=== PATIENT | female | born 1965 | race Caucasian/White ===

== ENCOUNTER 2017-12-16 14:12 | Inpatient (IN) | payer OTHER ==
[~2017-12-16] VITALS: Ht 162.6 cm; Wt 67.1 kg
[2017-12-16 14:25] VITALS: BP 142/74
--- NOTE | 2017-12-16 14:25 | NUR ---
[id number]: PT IS 52 YEARS OLD FEMALE ADMITTED ON 5150 FOR DTS. PT IS ALERT AND ORIENTED X3. ACCORDING TO THE HOLD, PT ATTEMPTED TO COMMIT SUICIDE BY TAKING PILLS. OFFICERS ARRIVED TO PT'S RESIDENCE, SUBJECTS WAS ON TOP OF PT WHO WAS DRUNK AND ATTEMPTED TO COMMIT SUICIDE BY TAKING PILLS. PT IS A CLARIBEL TO SELF. PT IS AMBULATORY, SELF-CARE, CONTINENT. MRSA DONE. CODE STATUS ORDERED. SKIN ASSESSMENT DONE. PT'S RIGHT BOOKLET WAS GIVEN TO PT. DISCUSS MEAL TIMES AND ACTIVITIES SCHEDULES. PT HAS ANXITY, DEPRESSION, DIABETES, HEADACHES, AND BACK PAIN. ALL PAPERWORK AND COMPUTER DOCUMENTATION COMPLETED. WILL ENDORSE TO INCOMING NURSE TO DOUBLE CHECK ALL COMPUTER AND PAPERWORK DOCUMENTATION.
[2017-12-16] MEDS ORDERED: MULT-447 PO (14:38)
[2017-12-16] MEDS ORDERED: TEST2.5G6 TD (14:38)
[2017-12-16] MEDS ORDERED: LORA10TA7 PO (14:38)
[2017-12-16] MEDS ORDERED: ASEN10TA9 SL (14:38)
[2017-12-16] MEDS ORDERED: OXYB10TA PO (14:38)
[2017-12-16] MEDS ORDERED: ASPI-1152 PO (14:38)
[2017-12-16] MEDS ORDERED: AROM1FL. PO (14:38)
[2017-12-16] MEDS ORDERED: MORP30TA PO (14:38)
[2017-12-16] MEDS ORDERED: ESTR2TAB PO (14:38)
[2017-12-16] MEDS ORDERED: LISI30TA4 PO (14:38)
[2017-12-16] MEDS ORDERED: DIAZ5TAB4 PO (14:38)
[2017-12-16] MEDS ORDERED: ATOR10TA PO (14:39)
[2017-12-16] MEDS ORDERED: ESTR42.53 VG (14:39)
[2017-12-16] MEDS ORDERED: TRIA0.252 PO (14:39)
[2017-12-16] MEDS ORDERED: QUET400T PO (14:39)
[2017-12-16] MEDS ORDERED: CITA20TA16 PO (14:39)
[2017-12-16] MEDS ORDERED: ESTR1VAG VG (14:57)
[2017-12-16] MEDS ORDERED: ATOR40TA PO (14:57)
[2017-12-16] MEDS ORDERED: ESTR1TAB28 PO (14:57)
[2017-12-16] MEDS ORDERED: CHLO500T3 PO (14:57)
[2017-12-16] MEDS ORDERED: LISI-603 PO (14:57)
[2017-12-16] MEDS ORDERED: OXYB5TAB29 PO (14:57)
[2017-12-16] MEDS ORDERED: LEVO100T9 PO (14:57)
[2017-12-16] MEDS ORDERED: ACETAMINOPHEN 325 MG TABLET PO PRN (15:00)
[2017-12-16] MEDS ORDERED: LORAZEPAM 0.5 MG TABLET PO PRN (15:00)
[2017-12-16] MEDS ORDERED: MAGNESIUM HYDROXIDE 30 ML UDC PO PRN (15:00)
[2017-12-16] MEDS ORDERED: CARV3.122 PO (15:00)
[2017-12-16] MEDS ORDERED: MAG HYDROX/AL HYDROX/SIMETH 30 ML UDC PO PRN (15:00)
[2017-12-16 16:44] VITALS: BP 137/89
[2017-12-16] MEDS: ASPIRIN EC 81 MG TABLET.DR PO SCH (18:27)
[2017-12-16 20:00] VITALS: BP 147/82
[2017-12-16] MEDS: HYDROCODONE/APAP 10/325MG 1 EA TABLET PO PRN (20:35)
--- NOTE | 2017-12-16 20:35 | NUR ---
NORCO 10/325 MG TAB 1 PO GIVEN PER REQUEST, C/O GEN. BODY PAIN, 7/10 ON PAIN SCALE
[2017-12-16] MEDS: OXYBUTYNIN CHLORIDE ER 5 MG TAB PO SCH (21:11)
[2017-12-16] MEDS: CARVEDILOL 3.125 MG TABLET PO SCH (21:11)
[2017-12-16] MEDS: LISINOPRIL (20MG) 20 MG TABLET PO SCH (21:12)
[2017-12-16] MEDS: ATORVASTATIN 40 MG TABLET PO SCH (21:12)
[2017-12-16] MEDS: QUETIAPINE FUMARATE 100 MG TABLET PO SCH (21:18)
[2017-12-16] MEDS: ESTRADIOL 1 MG TABLET PO SCH (21:20)
[2017-12-16] MEDS ORDERED: CITALOPRAM HYDROBROMIDE 20 MG TABLET PO SCH (22:00)
[2017-12-16] MEDS: DIAZEPAM 5 MG TABLET PO PRN (23:09)
[2017-12-17] MEDS: HYDROCODONE/APAP 10/325MG 1 EA TABLET PO PRN ×4 (04:35→23:28)
--- NOTE | 2017-12-17 04:48 | NUR ---
NORCO 10/325 MG TAB 1 PO GIVEN FOR GENERALIZED BODY PAIN, 8/10 ON PAIN SCALE, PER PATIENT'S REQUEST.
[2017-12-17 07:40] LABS: CHOLESTEROL 161 mg/dL (<200); HDL CHOLESTEROL 46 mg/dL (40-60); LDL 105 mg/dL (0-99); TRIGLYCERIDES 66 mg/dL (30-150)
[2017-12-17 07:48] LABS: ALBUMIN 3.5 g/dL (3.4-5.0); BILIRUBIN,TOTAL 0.3 mg/dL (0.2-1.0); CALCIUM, SERUM 8.9 mg/dL (8.5-10.1); CREATININE 0.6 mg/dL (0.6-1.3); POTASSIUM 3.6 mmol/L (3.5-5.1); TOTAL PROTEIN, SERUM 6.6 g/dL (6.4-8.2)
[2017-12-17 08:00] VITALS: BP 143/78
[2017-12-17] MEDS: DIAZEPAM 5 MG TABLET PO PRN ×2 (09:00→18:59)
[2017-12-17] MEDS: ASPIRIN EC 81 MG TABLET.DR PO SCH ×2 (09:00→17:16)
[2017-12-17] MEDS: MULTIVIT, IRON, MIN NO. 8, FA 1 TAB PO SCH (09:00)
[2017-12-17] MEDS: LORATADINE 10 MG TABLET PO PRN (09:00)
[2017-12-17] MEDS: LEVOTHYROXINE SODIUM 100 MCG TABLET PO SCH (09:00)
[2017-12-17] MEDS: CHLORZOXAZONE PO SCH ×3 (11:31→21:10)
[2017-12-17] MEDS: NICOTINE PATCH (21MG) 21 MG PATCH.TD24 TD SCH (12:40)
[2017-12-17 16:00] VITALS: BP 148/94
--- NOTE | 2017-12-17 17:27 | NUR ---
GPS/RN-NOTES PATIENT C/O 10/10 LOWER BACK PAIN, NORCO 10/325MG 1 TAB. P.O GIVEN PRN ORDER. WILL CONT. MONITORING FOR SAFETY.
--- NOTE | 2017-12-17 18:29 | NUR ---
GPS/RN-NOTES PATIENT sSITTING IN HER BED INTERACTING WITH HER ROOM MATE. PAIN LEVEL DOWN TO 3/10 PAIN SCALE.
--- NOTE | 2017-12-17 18:59 | NUR ---
GPS/RN-NOTES PATIENT REQUESTING VALIUM FOR HER ANXIETY. STATED" I NEED THE VALIUM FOR MY ANXIETY IT WILL CALM ME DOWN." VALIUM 5MG. 1 TAB. P.O GIVEN PRN ORDER. WILL ENDORSE TO INCOMING NURSE TO CONT.MONITORING FOR SAFETY AND BEHAVIOR AND FOR THE CONTINUITY OF CARE.
[2017-12-17 20:00] VITALS: BP 140/80
[2017-12-17] MEDS: CARVEDILOL 3.125 MG TABLET PO SCH (21:12)
[2017-12-17] MEDS: OXYBUTYNIN CHLORIDE ER 5 MG TAB PO SCH (21:12)
[2017-12-17] MEDS: LISINOPRIL (20MG) 20 MG TABLET PO SCH (21:13)
[2017-12-17] MEDS: ATORVASTATIN 40 MG TABLET PO SCH (21:13)
[2017-12-17] MEDS: ESTRADIOL 1 MG TABLET PO SCH (21:35)
--- NOTE | 2017-12-17 22:00 | NUR ---
GPS RN NOTE: PATIENT C/O MD ORDER OF DISCONTINUATION OF CELEXA AND THE HOLD EXTENSION ORDER. EXPLAINED THE DOCUMENTATION OF DOCTOR. PATIENT VERBALIZED UNDERSTANDING. WILL CONTINUE TO MONITOR AND WILL ENDORSE TO THE DAY SHIFT FOR CONTINUITY OF CARE.
[2017-12-17] MEDS: QUETIAPINE FUMARATE 100 MG TABLET PO SCH (22:32)
[2017-12-17] MEDS: TEMAZEPAM 7.5 MG CAPSULE PO PRN (23:18)
[2017-12-18] MEDS: DIAZEPAM 5 MG TABLET PO PRN ×2 (02:04→14:38)
[2017-12-18 06:25] LABS: BASOPHILS % (AUTO) 0.6 % (0.0-2.0); EOSINOPHILS % (AUTO) 0.9 % (0.0-6.0); HEMATOCRIT 34 % (33-45); HEMOGLOBIN 11.6 g/dL (11.5-14.8); LYMPHOCYTES # (AUTO) 1.8 /CMM (0.8-4.8); LYMPHOCYTES % (AUTO) 28.1 % (20.0-44.0); MEAN CORPUSCULAR HGB CONC 34 g/dl (31.0-36.0); MEAN CORPUSCULAR VOLUME 85 fL (82-100); MONOCYTES # (AUTO) 0.7 /CMM (0.1-1.30); MONOCYTES % (AUTO) 11.2 % (2.0-12.0); NEUTROPHILS # (AUTO) 3.7 /CMM (1.8-8.9); NEUTROPHILS % (AUTO) 59.2 % (43.0-81.0); PLATELET COUNT (AUTO) 264 /CMM (150-450); RDW COEFFICIENT OF VARIATION 14.2 (11.5-15.0); RED BLOOD CELL COUNT(AUTO) 4.04 MIL/uL (4.0-5.2); WHITE BLOOD COUNT (AUTO) 6.3 K/uL (4.3-11.0)
[2017-12-18] MEDS: HYDROCODONE/APAP 10/325MG 1 EA TABLET PO PRN (06:38)
[2017-12-18 08:00] VITALS: BP 113/86
[2017-12-18] MEDS: LEVOTHYROXINE SODIUM 100 MCG TABLET PO SCH (08:04)
[2017-12-18] MEDS: MULTIVIT, IRON, MIN NO. 8, FA 1 TAB PO SCH (08:14)
[2017-12-18] MEDS: ASPIRIN EC 81 MG TABLET.DR PO SCH ×2 (08:14→16:46)
[2017-12-18] MEDS: CHLORZOXAZONE PO SCH ×3 (08:14→21:32)
[2017-12-18] MEDS: NICOTINE PATCH (21MG) 21 MG PATCH.TD24 TD SCH (08:14)
--- NOTE | 2017-12-18 08:19 | NUR ---
GPS/RN-NOTES CAUGHT PATIENT HIDING ALL HER MEDICATIONS BEHIND HER BACK JUST AFTER GIVING HER MEDICATIONS. RE-EDUCATE PATIENT THE IMPORTANCE OF MED. COMPLIANCE AND PATIENT TOOK ALL THE MEDICATIONS.
--- NOTE | 2017-12-18 11:30 | NUR ---
GPS/RN-NOTES DR. MARY SEEN THE PATIENT WITH VERBAL ORDER TO DISCONTINUE ATIVAN ORDER. NOTED AND CARRIED OUT.
[2017-12-18] MEDS: MORPHINE SULFATE IR 15 MG TABLET PO PRN ×2 (12:56→21:38)
--- NOTE | 2017-12-18 13:14 | NUR ---
GPS/RN-NOTES PATIENT C/O 10/10 LOWER BACK PAIN AND REQUESTING HER PAIN MEDICATIONS. Ms Ir 30MG P.O GIVEN PRN ORDER. WILL CONT. MONITORING FOR SAFETY. ALSO BRANDON ESPINOZA ORDERED TO D/C ANALI ORDER. NOTED AND CARRIED OUT.
--- NOTE | 2017-12-18 14:39 | NUR ---
GPS/RN-NOTES PATIENT REQUESTING VALIUM FOR HER ANXIETY. STATED" I NEED THE VALIUM FOR MY ANXIETY IT WILL CALM ME DOWN." VALIUM 5MG. 1 TAB. P.O GIVEN PRN ORDER. WILL CONT. MONITORING FOR SAFETY AND BEHAVIOR.
--- NOTE | 2017-12-18 15:30 | NUR ---
GPS/RN-NOTES PATIENT WATCHING TV IN THE DAY ROOM CALM,NO ACUTE DISTRESS NOTED.
[2017-12-18 16:43] VITALS: BP 132/80
[2017-12-18] MEDS: LORATADINE 10 MG TABLET PO PRN (17:08)
--- NOTE | 2017-12-18 17:10 | NUR ---
GPS/RN-NOTES PATIENT REQUESTING FOR HER ALLERGY MEDICATIONS. CLARITIN 10 MG P.O GIVEN PRN ORDER.
[2017-12-18 20:23] VITALS: BP 132/96
[2017-12-18] MEDS: OXYBUTYNIN CHLORIDE ER 5 MG TAB PO SCH (21:33)
[2017-12-18] MEDS: ESTRADIOL 1 MG TABLET PO SCH (21:33)
[2017-12-18] MEDS: LISINOPRIL (20MG) 20 MG TABLET PO SCH (21:35)
[2017-12-18] MEDS: ATORVASTATIN 40 MG TABLET PO SCH (21:35)
[2017-12-18] MEDS: CARVEDILOL 3.125 MG TABLET PO SCH (21:36)
[2017-12-18] MEDS ORDERED: DIVALPROEX SODIUM 250 MG TABLET.DR PO SCH (22:00)
[2017-12-18] MEDS: QUETIAPINE FUMARATE 100 MG TABLET PO SCH (23:38)
[2017-12-18] MEDS: TEMAZEPAM 7.5 MG CAPSULE PO PRN (23:42)
[2017-12-19] MEDS: DIAZEPAM 5 MG TABLET PO PRN ×2 (01:02→09:52)
[2017-12-19] MEDS: MORPHINE SULFATE IR 15 MG TABLET PO PRN ×2 (06:50→13:03)
--- NOTE | 2017-12-19 06:58 | NUR ---
GPS RN NOTE: NOTIFIED TO BRING CHLORZOXAZONE MEDICATION, PER THEY DONT HAVE ANYMORE AND THEY GOING TO ARRANGE A APPOINTMENT WITH THE PAIN DOCTOR. WILL ENDORSE TO THE NEXT SHIFT.
[2017-12-19 08:00] VITALS: BP 117/88
[2017-12-19] MEDS: LEVOTHYROXINE SODIUM 100 MCG TABLET PO SCH (09:05)
[2017-12-19] MEDS: MULTIVIT, IRON, MIN NO. 8, FA 1 TAB PO SCH (09:05)
[2017-12-19] MEDS: CHLORZOXAZONE PO SCH ×2 (09:06→13:00)
[2017-12-19] MEDS: ASPIRIN EC 81 MG TABLET.DR PO SCH (09:52)
[2017-12-19] MEDS: LORATADINE 10 MG TABLET PO PRN (09:52)
[2017-12-19] MEDS: NICOTINE PATCH (21MG) 21 MG PATCH.TD24 TD SCH (09:52)
--- NOTE | 2017-12-19 15:34 | NUR ---
Initial Discharge Plan: Pt resides at [address] [place] [address]. [place] [address]; and would like to return home with her upon discharge. SW spoke to pts , Carter who agreed pt can return home once she is ready and stable. SW will follow up to ensure pt is safely and adequately discharged.
--- NOTE | 2017-12-19 16:57 | NUR ---
UR Update: QI contacted [facility] [phone] ext [phone] and spoke to Elina to inform her that pt would be discharging on this date at 4:00pm. QI will follow up tomorrow by faxing discharge note to [phone].
--- NOTE | 2017-12-19 17:00 | NUR ---
Discharge Plan: Patient will discharge home, [address] [facility] [address]; via private transportation at 4:00pm. Pts Carter will pick pt up. Pt has been notified and is in agreement. Pts Psychiatrist is Maurisio Deluca, [address] [facility] [id number]; . Pt has an appointment on Wednesday, December 20, 2017 at 12:00 pm per pt report. Pts Public Health Informatician is Dr. Malaika Segura, [id number] [facility] [address] [facility]. [address] [place] [address]; . 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 Pt was in agreement with discharge plan.
--- NOTE | 2017-12-26 14:52 | NUR ---
QI received a fax from from [facility] regarding discharge summary for this pt. QI spoke to Kecia, ext [phone]. QI explained the discharge summary was not on [email or web address] as of yet however would make it available once it was on the system. QI provided clinicals over the phone (i.e. dx/med list at the time of discharge). Per Kecia, information would suffice for the time being; however discharge summary was still needed. QI informed psychiatrist on the case, Dr. Ling and Mariaelena Wood Tong Hooker. QI will follow up.
== END 2017-12-19 16:00 | disposition home or self-care (01) | DRG 885 ==
LOC: GPS 14:12
PROVIDERS: ADMIT Psychiatry & Neurology Psychiatry; ATTEND Psychiatry & Neurology Psychiatry
DX: F31.2 Bipolar disorder, current episode manic severe with psychotic features (principal); E11.9 Type 2 diabetes mellitus without complications; R45.851 Suicidal ideations; Z86.73 Personal history of transient ischemic attack (TIA), and cerebral infarction without residual deficits; Z87.891 Personal history of nicotine dependence; G89.29 Other chronic pain; F41.9 Anxiety disorder, unspecified
CPT/HCPCS: 36415; 80053-TC; 80061-TC; 85025-TC